=== PATIENT | female | born 1970 | race Caucasian/White ===

== ENCOUNTER 2025-01-16 06:17 | Day surgery (SDC) | payer BC, SELFPAY | END 2025-01-16 13:59 | disposition home or self-care (01) | LOC: GI 06:17 | PROVIDERS: ATTENDING PHYSICIAN Specialist | DX: K57.30 Diverticulosis of large intestine without perforation or abscess without bleeding (principal); K57.32 Diverticulitis of large intestine without perforation or abscess without bleeding; D12.3 Benign neoplasm of transverse colon | CPT/HCPCS: 45385; 45381; 88305 ==